=== PATIENT | female | born 1965 | race Caucasian/White ===

== ENCOUNTER 2020-10-18 23:03 | Emergency (ER) | payer MEDICARE ==
[~2020-10-18] VITALS: Ht 154.9 cm; Wt 68.0 kg
[2020-10-19 00:09] LABS: ABSOLUTE EOSINOPHILS 0.2 thou/uL (0.0-0.7); ABSOLUTE LYMPHOCYTES 2.5 thou/uL (0.8-5.3); ABSOLUTE NEUTROPHILS 7.6 thou/uL (1.6-8.1); BASOPHILS 0.4 %; EOSINOPHILS 2.2 %; HEMATOCRIT 39.3 % (37.0-47.0); LYMPHOCYTES 21.8 %; MCH 30.8 pg (26.0-34.0); MCHC 33.1 g/dL (28.0-37.0); MCV 93.2 fL (80.0-100.0); MONOCYTES 8.9 %; MPV 8.2 fl. (7.2-11.1); NUCLEATED RBCS 0 /100WBC; PLATELET COUNT* 288 thou/uL (150-400); POLYS 66.7 %; RBC 4.22 mil/uL (4.20-5.00); RDW-CV 14.2 % (10.5-14.5); WBC 11.4 thou/uL (4.0-11.0)
[2020-10-19 00:13] LABS: CALCIUM 8.1 mg/dL (8.5-10.1); CREATININE 0.7 mg/dL (0.6-1.3)
[2020-10-19 00:16] LABS: PROTIME 9.8 Seconds (9.20-11.50)
[2020-10-19 00:23] LABS: ALBUMIN 3.4 g/dL (3.4-5.0); TOTAL BILIRUBIN 0.2 mg/dL (<0.1-1.0); TOTAL PROTEIN 7.7 g/dL (6.4-8.2)
[2020-10-19 00:26] LABS: INR < 0.9
[2020-10-19 00:32] LABS: URINE BILIRUBIN NEGATIVE (Negative); URINE BLOOD NEGATIVE (Negative); URINE CLARITY CLEAR; URINE COLOR YELLOW; URINE GLUCOSE-RANDOM NEGATIVE (Negative); URINE KETONES NEGATIVE (Negative); URINE LEUKOCYTES-REFLEX TRACE (Negative); URINE NITRITE-REFLEX NEGATIVE (Negative); URINE PROTEIN NEGATIVE (Negative); URINE SPECIFIC GRAVITY 1.025 (1.005-1.030); URINE UROBILINOGEN 0.2 E.U./dl (0.2-1.0)
[2020-10-19 00:39] LABS: AMP/METHAMP Negative (Negative); BARBITURATES Negative (Negative); BENZODIAZEPINES Negative (Negative); COCAINE Negative (Negative); METHADONE Negative (Negative); OPIATES Negative (Negative); PCP Negative (Negative); THC POSITIVE (Negative)
[2020-10-19 01:16] LABS: CASTS None Seen /LPF (None Seen); SQUAMOUS 4-10 Moderate /LPF (0-3)
[2020-10-19 01:17] LABS: BACTERIA-REFLEX 1-9 Few /HPF (None Seen); CRYSTALS None Seen /LPF (None Seen); URINE RBC None Seen /HPF (0-2); URINE WBC-REFLEX 0-5 Rare /HPF (0-5)
--- NOTE | 2020-10-19 11:02 | EKG ---
[place] [address] ELECTROCARDIOGRAM REPORT Name: KORTNEY SERVIN Room: [facility]#: [id number] Admission: 10/18/20 Attend Phys: Discharge: 10/19/20 Date of : 61 Date of Service: 10/18/20 2326 Report #: [id number] THIS REPORT FOR: //name// [facility] ED Test Date: 2020-10-18 Test Time: 23:26:26 Pat Name: KORTNEY SERVIN Department: Room: Gender: Caption Writer: : 1965 Requested By: Chelita Vazquez Order Number: [id number] MD: Donavan Gallegos Measurements Intervals [place] Rate: 97 P: 40 AR: 144 QRS: 71 QRSD: 113 T: 25 QT: 364 QTc: 463 Interpretive Statements Sinus rhythm Borderline intraventricular conduction delay Low voltage, extremity and precordial leads No previous ECG available for comparison Electronically Signed On 10-19-2020 11:01:57 [employer] by Donavan Gallegos [email or web address] <ELECTRONICALLY SIGNED> By: Donavan Gallegos MD, [facility] 10/19/20 1101 2326 2326 Donavan Gallegos MD, [facility] /EPI
== END 2020-10-19 04:20 | disposition home or self-care (01) ==
LOC: M.ERS 23:03
PROVIDERS: Personal Emergency Response Attendant
DX: R06.02 Shortness of breath (principal); R60.0 Localized edema; Z20.828 Contact with and (suspected) exposure to other viral communicable diseases